=== PATIENT | male | born 1995 | race Caucasian/White ===

== ENCOUNTER 2020-02-01 13:07 | Emergency (ER) | payer OTHER ==
[2020-02-01] MEDS ORDERED: DEXAMETHASONE SOD PHOS INJ 10 MG/1 ML VIAL IM ONE (13:18)
[2020-02-01] MEDS ORDERED: KETOROLAC TROMETHAMINE 60 MG/2 ML SDV IM ONE (13:18)
--- NOTE | 2020-02-01 13:25 | ER Document Report ---
ED Neck/Back Problem - General Chief Complaint: Back Pain Stated Complaint: BACK PAIN Time Seen by Provider: 02/01/20 13:15 Mode of Arrival: Ambulatory Information source: Patient Physical Exam - Vital signs Vitals: Temp Pulse Resp BP Pulse Ox 97.7 F 63 18 135/73 H 100 02/01/20 13:11 02/01/20 13:11 02/01/20 13:11 02/01/20 13:11 02/01/20 13:11 Course - Vital Signs Vital signs: Temp Pulse Resp BP Pulse Ox 97.7 F 63 18 135/73 H 100 02/01/20 13:11 02/01/20 13:11 02/01/20 13:11 02/01/20 13:11 02/01/20 13:11
--- NOTE | 2020-02-01 13:33 | ER Document Report ---
ED Medical Screen (RME) - General Chief Complaint: Back Pain Stated Complaint: BACK PAIN Time Seen by Provider: 02/01/20 13:15 Mode of Arrival: Ambulatory Information source: Patient Notes: 24-year-old male presented to ED for complaint of low back pain 2 months. 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 He states he has been to his doctor and they have just given him exercises to do. He states the pain is in his lower back with pain and numbness going down the right leg. He states he has not had any signs or symptoms of cauda equina, no loss control of bowel bladder no saddle anesthesia and no loss of control to the lower extremities. Patient is able to feel his leg but states he has numbness and pain all the way down to the toes. I did speak to the PA in radiology who states that the man needs a MRI of the lumbar spine. I then spoke with Dr. Salinas she stated that if etiology recommends a MRI to go ahead and order the MRI. RI has been ordered. I have greeted and performed a rapid initial assessment of this patient. A comprehensive ED assessment and evaluation of the patient, analysis of test results and completion of medical decision making process will be conducted by an additional ED providers. TRAVEL OUTSIDE OF THE [place] IN LAST 30 DAYS: No - Related Data Allergies/Adverse Reactions: No Known Allergies Allergy (Verified 02/01/20 13:19) Home Medications: ibuprofen Past Medical History - Social History Chew tobacco use (# tins/day): No Frequency of alcohol use: Social Drug Abuse: None Physical Exam - Vital signs Vitals: Temp Pulse Resp BP Pulse Ox 97.7 F 63 18 135/73 H 100 02/01/20 13:11 02/01/20 13:11 02/01/20 13:11 02/01/20 13:11 02/01/20 13:11 Course - Vital Signs Vital signs: Temp Pulse Resp BP Pulse Ox 97.7 F 63 18 135/73 H 100 02/01/20 13:11 02/01/20 13:11 02/01/20 13:11 02/01/20 13:11 02/01/20 13:11
--- NOTE | 2020-02-01 14:41 | RADIOLOGY REPORT (SQ) ---
EXAM DESCRIPTION: HAND LEFT 3 VIEWS COMPLETED DATE/TIME: 02/01/2020 2:27 pm REASON FOR STUDY: Commended by radiology possible metal fragments COMPARISON: None. EXAM PARAMETERS: NUMBER OF VIEWS: Three views. TECHNIQUE: AP, lateral and oblique radiographic images acquired of the left hand. LIMITATIONS: None. FINDINGS: MINERALIZATION: Normal. BONES: No acute fracture or dislocation. No worrisome bone lesions. JOINTS: No effusions. SOFT TISSUES: No soft tissue swelling. No foreign body. OTHER: No other significant finding. IMPRESSION: NEGATIVE STUDY OF THE LEFT HAND. NO METALLIC FRAGMENTS IDENTIFIED. TECHNICAL DOCUMENTATION: JOB ID: [id number] 2010 [employer]- All Rights Reserved Reading location - IP/workstation name: [email or web address]
--- NOTE | 2020-02-01 14:43 | RADIOLOGY REPORT (SQ) ---
EXAM DESCRIPTION: SKULL 1-3 VIEWS COMPLETED DATE/TIME: 02/01/2020 2:27 pm REASON FOR STUDY: Possible metal fragments COMPARISON: None. NUMBER OF VIEWS: Three views. TECHNIQUE: AP and lateral views of the orbits. LIMITATIONS: None. FINDINGS: ORBITS: No fracture. No foreign body. SINUSES: No mucosal thickening. No air fluid levels. FACIAL BONES: No fracture. OTHER: No other significant finding. IMPRESSION: NEGATIVE STUDY OF THE ORBITS. NO RADIO-OPAQUE FOREIGN BODY. THE PATIENT IS CLEARED FOR MRI SCANNING. TECHNICAL DOCUMENTATION: JOB ID: [id number] 2010 [employer]- All Rights Reserved Reading location - IP/workstation name: [email or web address]
--- NOTE | 2020-02-01 14:44 | RADIOLOGY REPORT (SQ) ---
EXAM DESCRIPTION: L SPINE WHOLE COMPLETED DATE/TIME: 02/01/2020 2:27 pm REASON FOR STUDY: Commended by radiology possible metal fragments COMPARISON: None. NUMBER OF VIEWS: Five views including obliques. TECHNIQUE: AP, lateral, oblique, and sacral radiographic images acquired of the lumbar spine. LIMITATIONS: None. FINDINGS: MINERALIZATION: Normal. SEGMENTATION: Normal. No transitional anatomy. ALIGNMENT: Normal. VERTEBRAE: Maintained height. No fracture or worrisome bone lesion. DISCS: Preserved height. No significant osteophytes or end plate irregularity. POSTERIOR ELEMENTS: Pedicles and facets are intact. No pars defect or posterior arch defects. HARDWARE: None in the spine. PARASPINAL SOFT TISSUES: Normal. PELVIS: Intact as visualized. No fractures or worrisome bone lesions. SI joints intact. OTHER: No other significant finding. No radiopaque foreign objects. IMPRESSION: NORMAL 5 VIEW LUMBAR SPINE. NO METALLIC FRAGMENTS VISUALIZED. TECHNICAL DOCUMENTATION: JOB ID: [id number] 2010 [email or web address]- All Rights Reserved Reading location - IP/workstation name: [email or web address]
--- NOTE | 2020-02-01 16:37 | RADIOLOGY REPORT (SQ) ---
EXAM DESCRIPTION: MRI LUMBAR SPINE WITHOUT COMPLETED DATE/TIME: 02/01/2020 4:25 pm REASON FOR STUDY: Back injury pain radiating down right leg numbness COMPARISON: Lumbar spine films 02/01/2020 TECHNIQUE: Sagittal and Axial imaging includes T1, T2, STIR and gradient echo sequences. Coronal T2/ HASTE imaging. LIMITATIONS: None. FINDINGS: VISUALIZED UPPER ABDOMEN: Limited evaluation. No acute or suspicious findings suggested. SEGMENTATION: No transitional anatomy. The lowest well-developed disc space is labeled L5-S1. ALIGNMENT: Anatomic. VERTEBRAE: Intact. BONE MARROW: Normal. No marrow replacement or reactive changes. DISC SIGNAL: Normal. No significant abnormal signal or loss of height. POSTERIOR ELEMENTS: Generally intact. No pars defect evident. Bilateral lower lumbar mild facet ar thropathy at L4-5 and L5-S1. HARDWARE: None in the spine. CORD AND CONUS: Normal in size and signal intensity. Conus at the T12-L1 level. SOFT TISSUES: No aortic aneurysm seen. No bulky retroperitoneal adenopathy or mass. No paraspinal mas s or fluid. L1-L2: No significant spinal stenosis or exit foraminal stenosis. L2-L3: No significant spinal stenosis or exit foraminal stenosis. L3-L4: No significant spinal stenosis or exit foraminal stenosis. L4-L5: No significant spinal stenosis or exit foraminal stenosis. L5-S1: No significant spinal stenosis or exit foraminal stenosis. LOWER THORACIC: Incompletely imaged. No stenosis seen. SACRUM: Visualized upper sacrum intact. OTHER: No other significant findings. IMPRESSION: NORMAL MRI LUMBAR SPINE. TECHNICAL DOCUMENTATION: JOB ID: [id number] 2010 [employer]- All Rights Reserved Reading location - IP/workstation name: [email or web address]
--- NOTE | 2020-02-01 17:01 | ER Document Report ---
ED General - General Chief Complaint: Back Pain Stated Complaint: BACK PAIN Time Seen by Provider: 02/01/20 13:15 Mode of Arrival: Ambulatory TRAVEL OUTSIDE OF THE [place] IN LAST 30 DAYS: No - HPI Notes: 24-year-old male presents emergency room for complaints of lower back pain that radiates down his right leg to his toes who was evaluated in triage, where an MRI was ordered without contrast of his lumbar spine. he states he is unsure if he has metal in his hand, skull or back (from shrapnel from his time in the [employer]) which all xrays came back negative. Patient is already had lumbar MRI prior to this provider picking up his chart. MRI has been completed and report shows that he has a normal lumbar spine. Patient states that he has had continual issues with right-sided sciatica that has been problematic due to the fact that he has been carrying on 80 pound packs and hiking 5 to 10 miles and doing physical activity during morning drills which has made his sciatica much worse. Denies any bowel or bladder dysfunction, no saddle anesthesia. Patient states that [place] or further evaluation being done any has become frustrated and concerned that he may have a lesion or mass in his lower back. Denies fevers, chills, chest pain,palpitations, shortness of breath, dyspnea, nausea, vomiting, diarrhea, abdominal pain, hematuria,blurred vision, double vision, loss of vision, speech changes, LH, dizziness, syncope, headaches, wheezing, ST, URI, neck pain, weakness, bowel or bladder dysfunction, saddle anesthesia, numbness or tingling in bilateral upper or lower extremities equally, muscle paralysis, weakness in bilateral upper or lower extremities equally or rash. Denies IV drug use. - Related Data Allergies/Adverse Reactions: No Known Allergies Allergy (Verified 02/01/20 13:19) Home Medications: ibuprofen Past Medical History - General Information source: Patient - Social History Smoking Status: Current Every Day Smoker Chew tobacco use (# tins/day): No Frequency of alcohol use: Social Drug Abuse: None Family History: Reviewed & Not Pertinent Patient has suicidal ideation: No Patient has homicidal ideation: No Review of Systems - Review of Systems Constitutional: No symptoms reported EENT: No symptoms reported Cardiovascular: No symptoms reported Respiratory: No symptoms reported Gastrointestinal: No symptoms reported Genitourinary: No symptoms reported Male Genitourinary: No symptoms reported Musculoskeletal: See HPI Skin: No symptoms reported Hematologic/Lymphatic: No symptoms reported Neurological/Psychological: No symptoms reported Physical Exam - Vital signs Vitals: Temp Pulse Resp BP Pulse Ox 97.7 F 63 18 135/73 H 100 02/01/20 13:11 02/01/20 13:11 02/01/20 13:11 02/01/20 13:11 02/01/20 13:11 - Notes Notes: PHYSICAL EXAMINATION:reviewed vital signs by RN GENERAL: Well-appearing, well-nourished and in no acute distress. HEAD: Atraumatic, normocephalic. EYES: Pupils equal round and reactive to light, extraocular movements intact, sclera anicteric, conjunctiva are normal. ENT: Nares patent, oropharynx clear without exudates. Moist mucous membranes. NECK: Normal range of motion, supple without lymphadenopathy LUNGS: Breath sounds clear to auscultation bilaterally and equal. No wheezes rales or rhonchi. HEART: Regular rate and rhythm without murmurs ABDOMEN: Soft, nontender, nondistended abdomen. No guarding, no rebound. No masses appreciated. Musculoskeletal: Normal range of motion, no pitting or edema. No cyanosis. NEUROLOGICAL: Cranial nerves grossly intact. Normal speech, normal gait. Normal sensory, motor exams PSYCH: Normal mood, normal affect. SKIN: Warm, Dry, normal turgor, no rashes or lesions noted. Course - Re-evaluation Re-evalutation: 02/01/20 17:38 Afebrile vital stable no distress. Nurse's notes reviewed. MRI of lower lumbar spine negative for any acute findings such as lesions, mass, disc herniation, compression fracture, epidural abscess. X-ray of lumbar spine, skull, hand were negative for fragments of metal foreign body fracture or dislocation. Patient was given in triage dexamethasone and Toradol injection, which did help his pain significantly. Patient's lumbar MRI was normal, discussed with him that he needs to do alternative methods such as physical therapy, heat, anti- inflammatories, lessening heavy loads of lifting, seeing event specialist product demonstrator, etc. patient has been a referral to event specialist product demonstrator as well as primary care provider. Advised to follow-up within the next 24 to 48 hours. Patient has not had any issues with bowel or bladder dysfunction, no saddle anesthesia, no fever chills, no weakness in his leg, no red flags for lumbar spine pain. After performing a Medical Screening Examination, I estimate there is LOW risk for EXPANDING OR RUPTURED ABDOMINAL AORTIC ANEURYSM, CAUDA EQUINA SYNDROME, EPIDURAL MASS ABSCESS OR LESION(S), OSTEOMYELITIS,PERSONAL HISTORY OF CANCER, IMMUNOSUPPERSSSION, HISTORY OF IV DRUG USE, FRACTURE, CORD COMPERSSION, CANCER, RETROPERITONEAL BLEED, SPINAL EPIDURAL HEMATOMA, or HERNIATED DISK CAUSING SEVERE SPINAL STENOSIS, thus I consider the discharge disposition reasonable. I have reevaluated this patient multiple times and no significant life threatening changes are noted. The patient and I have discussed the diagnosis and risks, and we agree with discharging home and close follow-up. We also discussed returning to the Emergency Department immediately if new or worsening symptoms occur with the understanding that symptoms and presentations can change. We have discussed the symptoms which are most concerning (e.g., saddle anesthesia, urinary or bowel incontinence or retention, changing or worsening pain) that necessitate immediate return. - Vital Signs Vital signs: Temp Pulse Resp BP Pulse Ox 97.7 F 63 18 135/73 H 100 02/01/20 13:11 02/01/20 13:11 02/01/20 13:11 02/01/20 13:11 02/01/20 13:11 Discharge - Discharge Clinical Impression: Right sided sciatica, Lower back pain Condition: Stable Disposition: HOME, SELF-CARE Instructions: Sciatica ([facility]), Low Back Pain ([facility]), Pain Medication Injection ([facility]), Warm Packs ([facility]), Muscle Strain ([facility]) Additional Instructions: Sciatica Your symptoms suggest "sciatica." The pain of sciatica typically radiates down the leg. Numbness in the foot or calf may also occur. Sciatica is caused by irritation of the sciatic nerve or its branches. The irritation can be due to a herniated disk in the spine, swelling and inflammation in the muscles surrounding the sciatic nerve, or direct injury of the nerve itself. Most cases of sciatica will resolve with medical treatment. Bed rest is usually recommended initially. Surgery is only necessary when the condition will not improve with rest and anti-inflammatory medication. Muscle relaxers are often given if muscle soreness is present. Re-examination is necessary if you develop increasing numbness, localized weakness in the foot or ankle, or if the pain does not respond to rest. Advise you to rest for 1 to 2 weeks, no heavy lifting of more than 10 pounds will may worsen your sciatica. take anti-inflammatory medication, advised to start physical therapy for your sciatica. Apply heat 20 minutes on 20 minutes off several times a day. You should be evaluated by event specialist product demonstrator for your sciatica continues while participating in physical therapy. Return immediately for any new or worsening symptoms. needs re evaluation by event specialist product demonstrator within 2 weeks for re eval Follow up with primary care provider, call tomorrow to make followup appointment. Referrals: MITCH ARIAS MD [ACTIVE PROVISIONAL STAFF] - Follow up as needed TEENA SEPULVEDA MD [ACTIVE STAFF] - Follow up as needed
[2020-02-01 17:10] VITALS: BP 128/67
== END 2020-02-01 17:12 | disposition home or self-care (01) ==
LOC: ER 13:07
DX: M54.41 Lumbago with sciatica, right side (principal); Z79.1 Long term (current) use of non-steroidal anti-inflammatories (NSAID); F17.200 Nicotine dependence, unspecified, uncomplicated
CPT/HCPCS: 99284; 96372; 72148; 73130; 72110; 70250; J1885; J1100